=== PATIENT | male | born 2000 | race Caucasian/White ===

== ENCOUNTER 2021-06-07 17:48 | Emergency (ER) | payer OTHER ==
--- NOTE | 2021-06-07 18:07 | ED Physician Documentation ---
PD HPI CHEST PAIN - Stated complaint Stated Complaint: CHEST PX - Chief complaint Chief Complaint: Cardiac - History obtained from History obtained from: Patient - Additional information Additional information: 21-year-old gentleman with no personal history of heart disease but risk factors including a father that at young age of what sounds like a coronary insult, specifically age 37 although per the gentleman's description it actually could be a PE. He also abuses tobacco. For last 3 weeks or so he has had intermittent chest pain. It is actually less so pain is a discomfort in the chest like feeling something is wrong in there. He has it for hours at a time and feels it more often than not. It is nonexertional. He does have some nausea and sweats with it. He denies pedal edema, calf pain, or recent travel. Review of Systems Constitutional: denies: Fever, Chills, Fatigue Cardiac: denies: Palpitations, Pedal edema, Calf pain Respiratory: denies: Hemoptysis, Wheezing PD PAST MEDICAL HISTORY - Present Medications Home Medications: Ambulatory Orders Medication Instructions Recorded Confirmed No Known Home Medications 06/07/21 06/07/21 - Allergies Allergies/Adverse Reactions: Allergies Allergy/AdvReac Type Severity Reaction Status Date / Time No Known Drug Allergies Allergy Verified 06/07/21 17:56 PD ED PE NORMAL - Vitals Vital signs reviewed: Yes - General General: Alert and oriented X 3, No acute distress - Neck Neck: Supple, no meningeal sign, No bony TTP - Cardiac Cardiac: RRR, No murmur - Respiratory Respiratory: No respiratory distress, Clear bilaterally - Abdomen Abdomen: Non tender - Extremities Extremities: No edema, No calf tenderness / cord - Neuro Neuro: Alert and oriented X 3, Normal speech Results - Vitals Vitals: Vital Signs - 24 hr 06/07/21 06/07/21 17:52 18:42 Temperature 36.8 C 37.1 C Heart Rate 76 76 Respiratory 16 16 Rate Blood Pressure 159/96 H 136/97 H O2 Saturation 97 98 Oxygen O2 Source Room air - EKG (time done) 1758 Rate: Rate (enter#) (74) Rhythm: NSR [place]: Normal Intervals: Normal DC QRS: Normal Ischemia: Normal ST segments - Labs Labs: Laboratory Tests 06/07/21 06/07/21 06/07/21 18:24 18:24 18:24 WBC 8.3 RBC 5.21 Hgb 15.3 Hct 45.0 MCV 86.4 MCH 29.4 MCHC 34.0 RDW 12.4 Plt Count 253 MPV 8.5 Neut # (Auto) 4.4 Lymph # (Auto) 2.7 [place] # (Auto) 1.0 Eos # (Auto) 0.3 Baso # (Auto) 0.0 Absolute Nucleated RBC 0.00 Nucleated RBC % 0.0 Sodium 139 Potassium 4.0 Chloride 102 Carbon Dioxide 28 Anion Gap 9.0 BUN 21 H Creatinine 1.0 Estimated GFR (MDRD) 93 Glucose 106 H Calcium 9.4 Troponin I High Sens < 2.3 L - Rads (name of study) 2v chest XR Radiology: EMP read contemporaneously (normal) PD MEDICAL DECISION MAKING - ED course ED course: Heart score 2, PERC negative Departure - Departure Disposition: 01 Home, Self Care Clinical Impression: Atypical chest pain Condition: Good Record reviewed to determine appropriate education?: Yes Instructions: ED Chest Pain Atypical Unkn Cause, ED Smoking Cessation Comments: Call your doctor to arrange a follow-up appointment, make the next available appointment. In the interim, return anytime if worse or if new symptoms develop. Discharge Date/Time: 06/07/21 19:01
[2021-06-07 18:31] LABS: BASOPHILS % (AUTO) 0.4 %; EOSINOPHILS # (AUTO) 0.3 10^3/uL (0.0-0.7); EOSINOPHILS % (AUTO) 3.1 %; HGB - HEMOGLOBIN 15.3 g/dL (14.0-18.0); LYMPHOCYTES # (AUTO) 2.7 10^3/uL (1.5-3.5); LYMPHOCYTES % (AUTO) 32.1 %; MEAN CORPUSCULAR HEMOGLOBIN 29.4 pg (27.0-31.0); MEAN CORPUSCULAR VOLUME 86.4 fL (80.0-94.0); MEAN PLATELET VOLUME 8.5 fL (7.4-11.4); MONOCYTES % (AUTO) 11.5 %; NEUTROPHILS # (AUTO) 4.4 10^3/uL (1.5-6.6); NEUTROPHILS % (AUTO) 52.8 %; PLT - PLATELET COUNT 253 10^3/uL (130-450); RED BLOOD COUNT 5.21 10^6/uL (4.70-6.10); RED CELL DISTRIBUTION WIDTH 12.4 % (12.0-15.0); WHITE BLOOD COUNT 8.3 x10^3/uL (4.8-10.8)
--- NOTE | 2021-06-07 18:33 | XRAY Report ---
PROCEDURE: Chest 2 View X-Ray INDICATIONS: chest pain TECHNIQUE: 2 views of the chest. COMPARISON: None. FINDINGS: Surgical changes and devices: None. Lungs and pleura: No pleural effusions or pneumothorax. Lungs are clear. Mediastinum: Mediastinal contours are normal. Heart size is normal. Bones and chest wall: No displaced rib fracture identified. No suspicious bony abnormalities. Soft tissues appear unremarkable. IMPRESSION: 1. No acute cardiopulmonary disease. Reviewed by: Gary Michelle MD on 06/07/2021 6:32 PM PDT Approved by: Gary Michelle MD on 06/07/2021 6:32 PM PDT Station ID: [id number]
[2021-06-07 18:39] LABS: CALCIUM 9.4 mg/dL (8.5-10.3)
[2021-06-07 18:43] VITALS: BP 136/97
== END 2021-06-07 19:01 | disposition home or self-care (01) ==
LOC: ED 17:48
DX: R07.89 Other chest pain (principal); Z72.0 Tobacco use
CPT/HCPCS: 36415; 80048; 84484; 85025; 93005; 99284

== ENCOUNTER 2021-07-27 15:00 | Emergency (ER) | payer OTHER ==
[2021-07-27 15:24] LABS: BASOPHILS # (AUTO) 0.1 10^3/uL (0.0-0.1); BASOPHILS % (AUTO) 0.6 %; EOSINOPHILS # (AUTO) 0.3 10^3/uL (0.0-0.7); EOSINOPHILS % (AUTO) 2.4 %; HCT - HEMATOCRIT 46.1 % (42.0-52.0); HGB - HEMOGLOBIN 16.2 g/dL (14.0-18.0); LYMPHOCYTES % (AUTO) 28.9 %; MEAN CORPUSCULAR HEMOGLOBIN 30.3 pg (27.0-31.0); MEAN CORPUSCULAR HGB CONC 35.1 g/dL (32.0-36.0); MEAN CORPUSCULAR VOLUME 86.3 fL (80.0-94.0); MEAN PLATELET VOLUME 8.4 fL (7.4-11.4); MONOCYTES # (AUTO) 0.8 10^3/uL (0.0-1.0); MONOCYTES % (AUTO) 8.1 %; NEUTROPHILS # (AUTO) 6.2 10^3/uL (1.5-6.6); NEUTROPHILS % (AUTO) 59.8 %; PLT - PLATELET COUNT 253 10^3/uL (130-450); RED BLOOD COUNT 5.34 10^6/uL (4.70-6.10); RED CELL DISTRIBUTION WIDTH 12.6 % (12.0-15.0); WHITE BLOOD COUNT 10.3 x10^3/uL (4.8-10.8)
[2021-07-27 15:36] LABS: ALBUMIN 4.4 g/dL (3.2-5.5); ALBUMIN/GLOBULIN RATIO 1.3 (1.0-2.2); BILIRUBIN,TOTAL 1.1 mg/dL (0.2-1.0); CALCIUM 9.2 mg/dL (8.5-10.3); POTASSIUM 4.1 mmol/L (3.5-5.0); TOTAL PROTEIN 7.8 g/dL (6.7-8.2)
[2021-07-27 15:55] LABS: BILIRUBIN,URINE NEGATIVE (NEGATIVE); GLUCOSE, URINE (UA) NEGATIVE (NEGATIVE); KETONES,URINE (UA) TRACE mg/dL (NEGATIVE); LEUKOCYTE ESTERASE, URINE NEGATIVE (NEGATIVE); NITRITE,URINE NEGATIVE (NEGATIVE); OCCULT BLOOD,URINE NEGATIVE (NEGATIVE); PH,URINE 5.5 PH (5.0-7.5); PROTEIN,URINE NEGATIVE (NEGATIVE); UROBILINOGEN,URINE 0.2 (NORMAL) E.U./dL (NORMAL)
[2021-07-27 15:57] LABS: CLARITY,URINE CLEAR (CLEAR)
[2021-07-27] MEDS ORDERED: IOVERSOL 320 100 ML VIAL IVP ONE ×2 (17:22→17:45)
[2021-07-27 17:48] VITALS: BP 122/82
--- NOTE | 2021-07-27 18:06 | CT Report ---
PROCEDURE: Abdomen/Pelvis W INDICATIONS: LLQ abd pain CONTRAST: IV CONTRAST: Optiray 320 ml: 100 PO CONTRAST: *NO PO CONTRAST TECHNIQUE: After the administration of intravenous contrast, 5 mm thick sections acquired from the diaphragms to the symphysis. 5 mm thick coronal and sagittal reformats were acquired. For radiation dose reducti on, the following was used: automated exposure control, adjustment of mA and/or kV according to nu ent size. COMPARISON: None. FINDINGS: Image quality: Excellent. ABDOMEN: Lung bases: Lung bases are clear. Heart size is normal. Solid organs: Liver and spleen are normal in size and enhancement. Gallbladder is unremarkable. Bi liary system is non dilated. Pancreas enhances normally. No adrenal nodules. Kidneys demonstrate n ormal size and enhancement, without hydronephrosis. Peritoneum and bowel: Bowel loops demonstrate normal wall thickness and caliber. No free fluid or a ir. Nodes and vessels: No retroperitoneal or mesenteric adenopathy by size criteria. Aorta and inferior vena cava are normal in size. Miscellaneous: No ventral hernias. PELVIS: Genitourinary: Bladder wall thickness is normal. Miscellaneous: No inguinal hernias or adenopathy. Bones: No suspicious bony lesions. No vertebral body compression fractures. IMPRESSION: Unremarkable CT of the abdomen and pelvis with contrast. No findings which explain left lower quadrant pain. Reviewed by: Kolton Marquez MD on 07/27/2021 6:05 PM PST Approved by: Kolton Marquez MD on 07/27/2021 6:05 PM PST Station ID: [id number]
--- NOTE | 2021-07-27 18:15 | ED Physician Documentation ---
PD HPI ABD PAIN - Stated complaint Stated Complaint: L SIDE PX - Chief complaint Chief Complaint: Abd Pain - History obtained from History obtained from: Patient - Additional information Additional information: Patient comes emergency department chief complaint of left flank and lower quadrant pain for the last 3 days. He states that he had laid his daughter down for a nap and lay down with her and when he woke up, he noticed the pain. He states that his been progressively worsening over the last 3 days. No fever or chills. No dysuria or hematuria. No change in bowel habits. No nausea or vo miting. Patient states he otherwise feels fine. No history of diverticulitis, hernia, or kidney stone. Review of Systems Ten Systems: 10 systems reviewed and negative Constitutional: reports: Reviewed and negative Eyes: reports: Reviewed and negative Ears: reports: Reviewed and negative Nose: reports: Reviewed and negative Throat: reports: Reviewed and negative Cardiac: reports: Reviewed and negative Respiratory: reports: Reviewed and negative GI: reports: Abdominal Pain, Reviewed and negative : reports: Reviewed and negative Skin: reports: Reviewed and negative Musculoskeletal: reports: Reviewed and negative Neurologic: reports: Reviewed and negative Psychiatric: reports: Reviewed and negative Endocrine: reports: Reviewed and negative Immunocompromised: reports: Reviewed and negative PD PAST MEDICAL HISTORY - Past Medical History Past Medical History: No - Past Surgical History Past Surgical History: No - Present Medications Home Medications: Ambulatory Orders Medication Instructions Recorded Confirmed No Known Home Medications 06/07/21 07/27/21 - Allergies Allergies/Adverse Reactions: Allergies Allergy/AdvReac Type Severity Reaction Status Date / Time No Known Drug Allergies Allergy Verified 07/27/21 15:07 - Social History Does the pt smoke?: No Smoking Status: Never smoker PD ED PE NORMAL - Vitals Vital signs reviewed: Yes - General General: Alert and oriented X 3, No acute distress, Well developed/nourished - HEENT HEENT: Atraumatic, PERRL, EOMI, Moist mucous membranes - Neck Neck: Supple, no meningeal sign - Cardiac Cardiac: RRR, No murmur - Respiratory Respiratory: No respiratory distress, Clear bilaterally - Abdomen Abdomen: Soft, Non distended, Other (Moderate tenderness left lower quadrant, no rebound or guarding) - Derm Derm: Warm and dry - Extremities Extremities: No deformity - Neuro Neuro: Alert and oriented X 3 - Psych Psych: Normal mood, Normal affect Results - Vitals Vitals: Vital Signs - 24 hr 07/27/21 07/27/21 15:08 17:48 Temperature 36 C L Heart Rate 91 65 Respiratory 16 19 Rate Blood Pressure 151/87 H 122/82 H O2 Saturation 99 99 Oxygen O2 Source Room air - Labs Labs: Laboratory Tests 07/27/21 07/27/21 07/27/21 15:20 15:20 15:20 WBC 10.3 RBC 5.34 Hgb 16.2 Hct 46.1 MCV 86.3 MCH 30.3 MCHC 35.1 RDW 12.6 Plt Count 253 MPV 8.4 Neut # (Auto) 6.2 Lymph # (Auto) 3.0 [place] # (Auto) 0.8 Eos # (Auto) 0.3 Baso # (Auto) 0.1 Absolute Nucleated RBC 0.00 Nucleated RBC % 0.0 Sodium 140 Potassium 4.1 Chloride 102 Carbon Dioxide 26 Anion Gap 12.0 BUN 17 Creatinine 1.0 Estimated GFR (MDRD) 93 Glucose 118 H Calcium 9.2 Total Bilirubin 1.1 H AST 23 ALT 28 Alkaline Phosphatase 82 Total Protein 7.8 Albumin 4.4 Globulin 3.4 Albumin/Globulin Ratio 1.3 Lipase 27 Urine Color YELLOW Urine Clarity CLEAR Urine pH 5.5 Ur Specific [place] 1.025 Urine Protein NEGATIVE Urine Glucose (UA) NEGATIVE Urine Ketones TRACE Urine Occult Blood NEGATIVE Urine Nitrite NEGATIVE Urine Bilirubin NEGATIVE Urine Urobilinogen 0.2 (NORMAL) Ur Leukocyte Esterase NEGATIVE Ur Microscopic Review NOT INDICATED Urine Culture Comments NOT INDICATED - Rads (name of study) CT abdomen and pelvis Radiology: Final report received, EMP read indepedently, See rad report (Negative) PD MEDICAL DECISION MAKING - ED course Complexity details: reviewed results, re-evaluated patient, considered differential, d/w patient ED course: The patient declined symptomatic treatment in the emergency department. Labs and urinalysis were unremarkable. Patient was sent for CT scan of the abdomen pelvis to further evaluate his left lower quadrant pain and tenderness and this was negative. I discussed with the patient that he may have pulled a muscle, but I do not find any evidence of any other condition on exam or test results. We discussed follow-up and the usual indications for return Departure - Departure Disposition: 01 Home, Self Care Clinical Impression: Abdominal pain Qualifiers: Abdominal location: left lower quadrant Qualified Code(s): R10.32 - Left lower quadrant pain Condition: Stable Instructions: ED Abdominal Pain Unkn Cause Male Comments: Your labs and CT scan look good, as does your urinalysis. Is not clear exactly what is caused your abdominal pain, but there is no evidence of an emergent or specifically treatable cause. Most likely, you have a muscular source for the pain and this will get better on its own. Please follow-up with your doctor if you are not feeling better in a week.
== END 2021-07-27 18:21 | disposition home or self-care (01) ==
LOC: ED 15:00
DX: R10.32 Left lower quadrant pain (principal)
CPT/HCPCS: 36415; 74177; 80053; 81003; 83690; 85025; 99282; 99284; Q9967; 81001; 87086